=== PATIENT | female | born 1960 | race Caucasian/White ===

== ENCOUNTER → 2020-10-30 | Outpatient (CLI) | payer MEDICARE, OTHER ==
[~2020-10-30] MED LIST: ALBUTEROL 0.083%; AUGMENTIN 875-1 EACH PO; CRESTOR20 MG PO; DIFLUCAN150 MG PO; ECOTRIN81 MG PO; ENOXAPARIN40 MG/0.4 SC; ESTRADIOL 0.1 MG TOP; FARXIGA10 MG PO; FIORICET TAB1 EA PO; FLUNISOLIDE 0.025%; GLUCOPHAGE500 MG PO; HYDROCHLOROTHIA25 MG PO; HYDROCODON-ACE1 EAC4 PO; IPRAT-ALBUT 0.5-3 ML INH; LANTUS SOL100 UNIT/1 SQ; LANTUS SOLOSTAR; LASIX20 MG PO; MEDROL4 MG PO; NEURONTIN800 MG PO; NORCO 5-325 TA1 EACH PO; PENVEE K 500 M500 MG PO; PERCOCET 5/325 T1 EA PO; PHENERGAN 25 MG25 M1 PO; PROAIR HFA 90MCG; PROTONIX40 MG PO; PROZAC40 MG PO; REGLAN5 MG PO; SINGULAIR10 MG PO; SODIUM CHLORIDE1 G1 PO; STIOLTO RESPIMAT4 GM INH; SYMBICORT 80-10.2 GM INH; SYNTHROID50 MCG PO; TIZANIDINE HCL4 M1 PO; TORADOL 10 MG T10 MG PO; TRILIPIX45 MG PO; VENTOLIN HFA 66.7 GM INH; VIBRAMYCIN 100100 MG PO; VIBRAMYCIN100 MG PO; ZOCOR10 MG PO; ZOFRAN4 MG PO; [UNRECOGNIZED DRUG - CODE]; [UNRECOGNIZED DRUG - CODE] SQ; [UNRECOGNIZED DRUG - OTHER]
== END ==
LOC: KOH-I 09:00
DX: J32.3 Chronic sphenoidal sinusitis (principal); J34.2 Deviated nasal septum
CPT/HCPCS: 70486

== ENCOUNTER 2020-11-28 18:22 | Inpatient (IN) | payer MEDICARE, OTHER ==
[~2020-11-28] VITALS: Ht 157.5 cm; Wt 81.6 kg
[~2020-11-28 18:22] MED LIST changes: -CRESTOR20 MG PO; -ENOXAPARIN40 MG/0.4 SC; -FARXIGA10 MG PO; -HYDROCODON-ACE1 EAC4 PO; -IPRAT-ALBUT 0.5-3 ML INH; -LANTUS SOL100 UNIT/1 SQ; -SODIUM CHLORIDE1 G1 PO; -STIOLTO RESPIMAT4 GM INH; -[UNRECOGNIZED DRUG - CODE] SQ
[2020-11-28 19:46] LABS: HEMOGLOBIN 14.4 gm/dl (12.3-15.3); RED BLOOD COUNT 4.98 M/UL (4.00-5.10); WHITE BLOOD COUNT 17.5 K/UL (4.5-11.0)
[2020-11-28 20:01] LABS: BUN/CREATININE RATIO 13 (0-10)
[2020-11-28] MEDS ORDERED: FARXIGA10 MG PO (23:44)
[2020-11-28] MEDS ORDERED: LANTUS SOL100 UNIT/1 SQ (23:45)
[2020-11-28] MEDS ORDERED: [UNRECOGNIZED DRUG - CODE] SQ (23:47)
[2020-11-28] MEDS ORDERED: STIOLTO RESPIMAT4 GM INH (23:49)
[2020-11-28] MEDS ORDERED: IPRAT-ALBUT 0.5-3 ML INH (23:50)
[2020-11-28] MEDS ORDERED: CRESTOR20 MG PO (23:53)
[2020-11-29 10:13] LABS: HEMOGLOBIN 13.6 gm/dl (12.3-15.3); RED BLOOD COUNT 4.71 M/UL (4.00-5.10); WHITE BLOOD COUNT 15.7 K/UL (4.5-11.0)
[2020-11-29 10:28] LABS: BUN/CREATININE RATIO 16 (0-10)
[2020-11-30 02:50] LABS: HEMOGLOBIN 13.2 gm/dl (12.3-15.3); RED BLOOD COUNT 4.66 M/UL (4.00-5.10); WHITE BLOOD COUNT 13.8 K/UL (4.5-11.0)
[2020-11-30 03:09] LABS: BUN/CREATININE RATIO 21 (0-10)
[2020-12-01 03:15] LABS: RED BLOOD COUNT 4.23 M/UL (4.00-5.10); WHITE BLOOD COUNT 10.6 K/UL (4.5-11.0)
[2020-12-01 03:38] LABS: BUN/CREATININE RATIO 20 (0-10)
[2020-12-01 19:10] LABS: BUN/CREATININE RATIO 29 (0-10)
[2020-12-01 19:15] LABS: HEMOGLOBIN 11.6 gm/dl (12.3-15.3); RED BLOOD COUNT 4.07 M/UL (4.00-5.10); WHITE BLOOD COUNT 23.3 K/UL (4.5-11.0)
[2020-12-02 05:45] LABS: HEMOGLOBIN 8.7 gm/dl (12.3-15.3); RED BLOOD COUNT 3.07 M/UL (4.00-5.10); WHITE BLOOD COUNT 14.1 K/UL (4.5-11.0)
[2020-12-02 06:00] LABS: BUN/CREATININE RATIO 31 (0-10)
[2020-12-03 06:22] LABS: HEMOGLOBIN 7.9 gm/dl (12.3-15.3); RED BLOOD COUNT 2.78 M/UL (4.00-5.10); WHITE BLOOD COUNT 10.7 K/UL (4.5-11.0)
[2020-12-03 06:41] LABS: BUN/CREATININE RATIO 19 (0-10)
[2020-12-03] MEDS ORDERED: LASIX20 MG PO (09:30)
[2020-12-03] MEDS ORDERED: ENOXAPARIN40 MG/0.4 SC (09:30)
--- NOTE | 2020-12-03 10:28 | NUR ---
D/C'D HEMOVAC PER VERBAL ORDER FROM [facility]. SITE WNL NO COMPLICATIONS. WCTM
[2020-12-03] MEDS ORDERED: SODIUM CHLORIDE1 G1 PO (12:45)
[2020-12-03] MEDS ORDERED: PERCOCET 5/325 T1 EA PO (12:45)
--- NOTE | 2020-12-03 13:39 | NUR ---
CALLED OR. SPOKE WITH CAM JUAREZ. SHE VERIFIED WITH DR MEJIA THAT PT IS OK TO DC HOME.
== END 2020-12-03 13:50 | disposition home or self-care (01) | DRG 463 ==
LOC: ER1 18:22 → CDU 22:13 → M/S 22:13
PROVIDERS: Orthopaedic Surgery; Physician Assistant; ADMIT Internal Medicine
PROC: 0QSC06Z Reposition Left Lower Femur with Intramedullary Internal Fixation Device, Open Approach (ICD-10-PCS; principal; 2020-12-01 14:00)
PROC: 0SPD09Z Removal of Liner from Left Knee Joint, Open Approach (ICD-10-PCS; principal; 2020-12-01 14:00)
PROC: 0SUD09Z Supplement Left Knee Joint with Liner, Open Approach (ICD-10-PCS; principal; 2020-12-01 14:00)
DX: S72.402A Unspecified fracture of lower end of left femur, initial encounter for closed fracture (principal); I50.33 Acute on chronic diastolic (congestive) heart failure; M97.12XA Periprosthetic fracture around internal prosthetic left knee joint, initial encounter; E22.2 Syndrome of inappropriate secretion of antidiuretic hormone; I11.0 Hypertensive heart disease with heart failure; F41.9 Anxiety disorder, unspecified; W00.0XXA Fall on same level due to ice and snow, initial encounter; F17.210 Nicotine dependence, cigarettes, uncomplicated; D63.8 Anemia in other chronic diseases classified elsewhere; Z20.822 Contact with and (suspected) exposure to COVID-19; J44.9 Chronic obstructive pulmonary disease, unspecified; E11.9 Type 2 diabetes mellitus without complications; E03.9 Hypothyroidism, unspecified; Z96.653 Presence of artificial knee joint, bilateral; Z90.49 Acquired absence of other specified parts of digestive tract; Z90.710 Acquired absence of both cervix and uterus; Z88.5 Allergy status to narcotic agent; Z28.21 Immunization not carried out because of patient refusal
CPT/HCPCS: 36415; 71045; 72170; 72192; 73552; 73560; 73590; 73700; 76000; 80048; 80053; 82436; 82962; 84133; 84300; 85025; 93005; 94640; 94664; 94760; 96374; 96375; 96376; 97116-GP-CQ; 97162; 97166; 99285; C1713; C1776; J0690; J1100; J1170; J1644; J1650; J1885; J1940; J2001; J2250; J2270; J2405; J2550; J2704; J2710; J2795; J3010; J3370; J7030; J7050; J7120; U0002

== ENCOUNTER 2020-12-06 11:15 | Emergency (ER) | payer MEDICARE, OTHER ==
[~2020-12-06 11:15] MED LIST changes: +CRESTOR20 MG PO; +ENOXAPARIN40 MG/0.4 SC; +FARXIGA10 MG PO; +IPRAT-ALBUT 0.5-3 ML INH; +LANTUS SOL100 UNIT/1 SQ; +SODIUM CHLORIDE1 G1 PO; +STIOLTO RESPIMAT4 GM INH; +[UNRECOGNIZED DRUG - CODE] SQ
[2020-12-06] MEDS ORDERED: HYDROCODON-ACE1 EAC4 PO ×2 (12:45→13:39)
== END 2020-12-06 13:00 | disposition home or self-care (01) ==
LOC: ER1 11:15
DX: Z76.0 Encounter for issue of repeat prescription (principal); E11.9 Type 2 diabetes mellitus without complications; J44.9 Chronic obstructive pulmonary disease, unspecified; I10 Essential (primary) hypertension; Z88.5 Allergy status to narcotic agent; Z90.710 Acquired absence of both cervix and uterus; Z79.84 Long term (current) use of oral hypoglycemic drugs; Z90.49 Acquired absence of other specified parts of digestive tract; Z87.891 Personal history of nicotine dependence
CPT/HCPCS: 99281

== ENCOUNTER → 2021-05-19 | Outpatient (CLI) | payer MEDICARE ==
[~2021-05-19] MED LIST changes: +BREZTRI AEROS10.7 GM INH; +CALCIUM PO; +CENTRUM SILVER1 EAC4 PO; +FISH OIL 1,0001 EAC5 PO; +HYDROCODON-ACE1 EAC4 PO; +HYDROCODONE-AC1 EAC1 PO; +LEVOTHYROXINE75 MC1 PO; +LISINOPRIL10 MG PO; +PROVENTIL HFA6.7 GM INH; +TURMERIC PO; +VITAMIN D3125 MCG PO; +ZYRTEC10 MG PO
[2021-05-19 17:48] LABS: BUN/CREATININE RATIO 14 (0-10)
== END ==
LOC: LAB 16:26
PROVIDERS: Internal Medicine Nephrology
DX: N18.1 Chronic kidney disease, stage 1 (principal); E87.6 Hypokalemia; E55.9 Vitamin D deficiency, unspecified
CPT/HCPCS: 80053; 82570; 83735; 84156

== ENCOUNTER → 2021-06-08 | Outpatient (CLI) | payer MEDICARE ==
[~2021-06-08] MED LIST changes: -BREZTRI AEROS10.7 GM INH; -CALCIUM PO; -CENTRUM SILVER1 EAC4 PO; -FISH OIL 1,0001 EAC5 PO; -HYDROCODONE-AC1 EAC1 PO; -LEVOTHYROXINE75 MC1 PO; -LISINOPRIL10 MG PO; -PROVENTIL HFA6.7 GM INH; -TURMERIC PO; -VITAMIN D3125 MCG PO; -ZYRTEC10 MG PO
== END ==
LOC: KOH-I 09:24
DX: S72.402A Unspecified fracture of lower end of left femur, initial encounter for closed fracture (principal); M25.462 Effusion, left knee; W19.XXXA Unspecified fall, initial encounter
CPT/HCPCS: 73700

== ENCOUNTER → 2021-07-16 | Outpatient (CLI) | payer MEDICARE ==
[~2021-07-16] MED LIST changes: +BREZTRI AEROS10.7 GM INH; +CALCIUM PO; +CENTRUM SILVER1 EAC4 PO; +FISH OIL 1,0001 EAC5 PO; +HYDROCODONE-AC1 EAC1 PO; +LASIX 40 MG TAB40 MG PO; +LEVOTHYROXINE75 MC1 PO; +LISINOPRIL10 MG PO; +PROVENTIL HFA6.7 GM INH; +TURMERIC PO; +VITAMIN D3125 MCG PO; +ZYRTEC10 MG PO
[2021-07-16 14:23] LABS: BUN/CREATININE RATIO 14 (0-10)
== END ==
LOC: OPSV2 13:00
PROVIDERS: Orthopaedic Surgery
DX: Z01.818 Encounter for other preprocedural examination (principal)
CPT/HCPCS: 36415; 80048; 93005

== ENCOUNTER 2021-07-19 01:08 | Emergency (ER) | payer MEDICARE ==
[~2021-07-19 01:08] MED LIST changes: -LASIX 40 MG TAB40 MG PO
[2021-07-19 02:51] LABS: RED BLOOD COUNT 4.24 M/UL (4.00-5.10); WHITE BLOOD COUNT 10.7 K/UL (4.5-11.0)
[2021-07-19 03:14] LABS: BUN/CREATININE RATIO 13 (0-10)
[2021-07-19] MEDS ORDERED: LASIX 40 MG TAB40 MG PO (04:23)
== END 2021-07-19 04:45 | disposition home or self-care (01) ==
LOC: ER1 01:08
PROVIDERS: Family Medicine
DX: R60.0 Localized edema (principal); R60.9 Edema, unspecified; R74.8 Abnormal levels of other serum enzymes
CPT/HCPCS: 71046; 80053; 82550; 82553; 83874; 83880; 84484; 85025; 93005; 96374; 99284; J1940

== ENCOUNTER → 2021-07-20 | Day surgery (SDC) | payer MEDICARE ==
[~2021-07-20] VITALS: Ht 157.5 cm; Wt 88.5 kg
[~2021-07-20] MED LIST changes: +LASIX 40 MG TAB40 MG PO
== END | disposition home or self-care (01) ==
LOC: OR 06:20
DX: S72.402G Unspecified fracture of lower end of left femur, subsequent encounter for closed fracture with delayed healing (principal); M97.12XA Periprosthetic fracture around internal prosthetic left knee joint, initial encounter; I13.0 Hypertensive heart and chronic kidney disease with heart failure and stage 1 through stage 4 chronic kidney disease, or unspecified chronic kidney disease; E11.22 Type 2 diabetes mellitus with diabetic chronic kidney disease; N18.9 Chronic kidney disease, unspecified; I50.9 Heart failure, unspecified; E78.5 Hyperlipidemia, unspecified; J44.9 Chronic obstructive pulmonary disease, unspecified; K21.9 Gastro-esophageal reflux disease without esophagitis; F41.9 Anxiety disorder, unspecified; E03.9 Hypothyroidism, unspecified; F17.200 Nicotine dependence, unspecified, uncomplicated; X58.XXXD Exposure to other specified factors, subsequent encounter; Z90.49 Acquired absence of other specified parts of digestive tract; Z90.710 Acquired absence of both cervix and uterus; Z96.653 Presence of artificial knee joint, bilateral; Z99.81 Dependence on supplemental oxygen; Z88.6 Allergy status to analgesic agent; Z88.8 Allergy status to other drugs, medicaments and biological substances; Z79.4 Long term (current) use of insulin; Z79.899 Other long term (current) drug therapy
CPT/HCPCS: 73552; 76000; 82962; J0690; J2001; J2250; J2405; J2550; J2704; J2710; J2795; J3010; J7030; J7120

== ENCOUNTER → 2021-12-09 | Outpatient (CLI) | payer MEDICARE | LOC: KOH-I 09:00 | DX: S72.402K Unspecified fracture of lower end of left femur, subsequent encounter for closed fracture with nonunion (principal) | CPT/HCPCS: 73700 ==

== ENCOUNTER 2022-01-19 13:50 | Inpatient (IN) | payer MEDICARE ==
[~2022-01-19] VITALS: Ht 157.5 cm; Wt 94.0 kg
[~2022-01-19 13:50] MED LIST changes: +AMOX TR-K CLV1 EAC4 PO
[2022-01-19 15:22] LABS: HEMOGLOBIN 12.7 gm/dl (12.3-15.3); RED BLOOD COUNT 4.54 M/UL (4.00-5.10); WHITE BLOOD COUNT 12.6 K/UL (4.5-11.0)
[2022-01-19 16:27] LABS: BUN/CREATININE RATIO 7 (0-10)
[2022-01-20] MEDS ORDERED: [UNRECOGNIZED DRUG - CODE] SC (01:34)
[2022-01-20] MEDS ORDERED: PROTONIX 40 MG40 M1 PO (01:40)
[2022-01-20] MEDS ORDERED: SINGULAIR10 MG PO (01:40)
[2022-01-20] MEDS ORDERED: LANTUS SOL100 UNIT/1 SQ (01:40)
[2022-01-20] MEDS ORDERED: FARXIGA10 MG PO (01:41)
[2022-01-20] MEDS ORDERED: LEVOTHYROXINE75 MC1 PO (01:41)
[2022-01-20] MEDS ORDERED: ZYRTEC10 MG PO (01:42)
[2022-01-20] MEDS ORDERED: NORVASC5 MG PO (01:42)
[2022-01-20] MEDS ORDERED: ZANAFLEX4 MG PO (01:43)
[2022-01-20] MEDS ORDERED: LISINOPRIL10 MG PO (01:43)
[2022-01-20] MEDS ORDERED: ZOCOR40 MG PO (01:44)
[2022-01-20] MEDS ORDERED: PROZAC40 MG PO (01:44)
[2022-01-20] MEDS ORDERED: GABAPENTIN800 MG PO (01:45)
[2022-01-20 02:29] LABS: HEMOGLOBIN 12.3 gm/dl (12.3-15.3); RED BLOOD COUNT 4.39 M/UL (4.00-5.10); WHITE BLOOD COUNT 15.7 K/UL (4.5-11.0)
[2022-01-20] MEDS ORDERED: PROMETHAZINE HC25 M1 PO (11:37)
[2022-01-20] MEDS ORDERED: JANUVIA100 MG PO (11:49)
[2022-01-20] MEDS ORDERED: TORADOL 10 MG T10 MG PO (14:18)
[2022-01-22 08:56] LABS: RED BLOOD COUNT 4.28 M/UL (4.00-5.10)
[2022-01-22 09:23] LABS: BUN/CREATININE RATIO 6 (0-10)
[2022-01-22] MEDS ORDERED: LEVOFLOXACIN750 MG PO (09:43)
== END 2022-01-22 10:17 | disposition home or self-care (01) | DRG 871 ==
LOC: ER1 13:50 → CDU 19:13 → PROG CARE 19:13
PROVIDERS: Physician Assistant; ADMIT Internal Medicine
DX: A41.9 Sepsis, unspecified organism (principal); J18.9 Pneumonia, unspecified organism; J96.01 Acute respiratory failure with hypoxia; J44.0 Chronic obstructive pulmonary disease with (acute) lower respiratory infection; E03.9 Hypothyroidism, unspecified; Z20.822 Contact with and (suspected) exposure to COVID-19; G89.29 Other chronic pain; M54.9 Dorsalgia, unspecified; F17.290 Nicotine dependence, other tobacco product, uncomplicated; K21.9 Gastro-esophageal reflux disease without esophagitis; E11.9 Type 2 diabetes mellitus without complications; F41.9 Anxiety disorder, unspecified; E11.43 Type 2 diabetes mellitus with diabetic autonomic (poly)neuropathy; K31.84 Gastroparesis; M25.562 Pain in left knee; I50.9 Heart failure, unspecified; I11.0 Hypertensive heart disease with heart failure; M25.552 Pain in left hip; Z96.653 Presence of artificial knee joint, bilateral; R59.1 Generalized enlarged lymph nodes; D64.9 Anemia, unspecified; Z90.710 Acquired absence of both cervix and uterus; Z90.49 Acquired absence of other specified parts of digestive tract; Z98.890 Other specified postprocedural states
CPT/HCPCS: 0240U; 36415; 36600; 71045; 80053; 80307; 81001; 82803; 82962; 83605; 83615; 83690; 83735; 84100; 84439; 84443; 85025; 85652; 86140; 87040; 87070; 87081; 87205; 93005; 96365; 96372; 96375; 96376; 99285; J1650; J2185; J2405; J2760; J2765; J7030; Q9967

== ENCOUNTER 2022-02-04 17:37 | Emergency (ER) | payer MEDICARE ==
[~2022-02-04 17:37] MED LIST changes: +GABAPENTIN800 MG PO; +JANUVIA100 MG PO; +LEVOFLOXACIN750 MG PO; +NORVASC5 MG PO; +PROMETHAZINE HC25 M1 PO; +PROTONIX 40 MG40 M1 PO; +ZANAFLEX4 MG PO; +ZOCOR40 MG PO; +[UNRECOGNIZED DRUG - CODE] SC
[2022-02-04 18:07] LABS: HEMOGLOBIN 12.8 gm/dl (12.3-15.3); RED BLOOD COUNT 4.54 M/UL (4.00-5.10); WHITE BLOOD COUNT 12.5 K/UL (4.5-11.0)
[2022-02-04 18:42] LABS: BUN/CREATININE RATIO 16 (0-10)
[2022-02-04] MEDS ORDERED: GUAIFENESIN400 MG PO (22:46)
[2022-02-07] MEDS ORDERED: IPRAT-ALBUT 0.5-3 ML INH (11:31)
[2022-02-07] MEDS ORDERED: ONDANSETRON ODT4 MG PO (11:32)
[2022-02-07] MEDS ORDERED: BREZTRI AEROS10.7 GM PO (11:33)
[2022-02-07] MEDS ORDERED: TIZANIDINE HCL4 MG PO (11:36)
[2022-02-08] MEDS ORDERED: PROTONIX40 MG PO (11:09)
[2022-02-08] MEDS ORDERED: LEVOFLOXACIN750 MG PO (11:09)
== END 2022-02-04 22:54 | disposition home or self-care (01) ==
LOC: ER1 17:37
DX: R07.89 Other chest pain (principal); R10.13 Epigastric pain; E11.9 Type 2 diabetes mellitus without complications; J44.9 Chronic obstructive pulmonary disease, unspecified; I10 Essential (primary) hypertension; F17.290 Nicotine dependence, other tobacco product, uncomplicated
CPT/HCPCS: 36600; 71045; 80053; 82550; 82553; 82803; 84484; 85025; 94664; 96374; 96375; 96376; 99285; C9113; J2270; J2405; Q9967

== ENCOUNTER → 2022-02-12 | Outpatient (CLI) | payer MEDICARE ==
[~2022-02-12] MED LIST changes: +BREZTRI AEROS10.7 GM PO; +GUAIFENESIN400 MG PO; +ONDANSETRON ODT4 MG PO; +TIZANIDINE HCL4 MG PO
== END ==
LOC: HEART 5 11:45
DX: R06.02 Shortness of breath (principal)
CPT/HCPCS: 94060; 94729

== ENCOUNTER → 2022-02-15 | Outpatient (CLI) | payer MEDICARE | LOC: RT 11:55 | DX: J30.9 Allergic rhinitis, unspecified (principal); R90.89 Other abnormal findings on diagnostic imaging of central nervous system; F41.9 Anxiety disorder, unspecified; M19.90 Unspecified osteoarthritis, unspecified site; G56.03 Carpal tunnel syndrome, bilateral upper limbs; G47.34 Idiopathic sleep related nonobstructive alveolar hypoventilation; R93.89 Abnormal findings on diagnostic imaging of other specified body structures | CPT/HCPCS: 36600; 82803 ==

== ENCOUNTER → 2022-03-01 | Outpatient (CLI) | payer MEDICARE | LOC: HEART 5 02-23 08:45 | DX: R07.9 Chest pain, unspecified (principal) | CPT/HCPCS: 78452; A9502; J2785 ==

== ENCOUNTER → 2022-03-13 | Outpatient (CLI) | payer MEDICARE ==
[2022-03-16 12:10] LABS: ANGIOTENSIN-CONVERTING ENZYME <15 U/L (14-82)
[2022-03-16 13:10] LABS: A/G RATIO 1.3 (0.7-1.7); ALBUMIN 3.8 g/dL (2.9-4.4); ALPHA-1-GLOBULIN 0.2 g/dL (0.0-0.4); ALPHA-2-GLOBULIN 1.2 g/dL (0.4-1.0); BETA GLOBULIN 0.8 g/dL (0.7-1.3); GAMMA GLOBULIN 0.8 g/dL (0.4-1.8); M-SPIKE Not Observed g/dL (Not Observed); PROTEIN, TOTAL, SERUM 6.8 g/dL (6.0-8.5)
[2022-03-17 05:10] LABS: VITAMIN D, 25-HYDROXY 50.8 ng/mL (30.0-100.0)
[2022-03-18 15:13] LABS: IMMUNOGLOBULIN A, QN, SERUM 105 mg/dL (87-352); IMMUNOGLOBULIN G, QN, SERUM 763 mg/dL (586-1602); IMMUNOGLOBULIN M, QN, SERUM 102 mg/dL (26-217)
== END ==
LOC: LAB 15:37
PROVIDERS: Internal Medicine Nephrology
DX: E83.52 Hypercalcemia (principal); R31.9 Hematuria, unspecified; N18.1 Chronic kidney disease, stage 1; E87.6 Hypokalemia
CPT/HCPCS: 80053; 81001; 82164; 82330; 82397; 82570; 82784; 83735; 83970; 84100; 84155; 84156; 84165; 86334; 86335

== ENCOUNTER → 2022-03-24 | Outpatient (CLI) | payer MEDICARE ==
[2022-03-24 14:31] LABS: HEMOGLOBIN 12.1 gm/dl (12.3-15.3); RED BLOOD COUNT 4.39 M/UL (4.00-5.10); WHITE BLOOD COUNT 6.5 K/UL (4.5-11.0)
== END ==
LOC: OPSV2 12:30 → EDSTATUS 12:30 → OPSV2 12:43
PROVIDERS: Orthopaedic Surgery
DX: Z01.812 Encounter for preprocedural laboratory examination (principal); S82.002K Unspecified fracture of left patella, subsequent encounter for closed fracture with nonunion
CPT/HCPCS: 80048; 81001; 83036; 85025; 85652; 86140

== ENCOUNTER 2022-04-03 11:34 | Emergency (ER) | payer MEDICARE ==
[~2022-04-03 11:34] MED LIST changes: +LEVOTHYROXINE75 MCG PO
[2022-04-03 13:05] LABS: HEMOGLOBIN 13.1 gm/dl (12.3-15.3); RED BLOOD COUNT 4.7 M/UL (4.00-5.10); WHITE BLOOD COUNT 8.5 K/UL (4.5-11.0)
== END 2022-04-03 14:54 | disposition home or self-care (01) ==
LOC: ER1 11:34
PROVIDERS: Physician Assistant
DX: R06.02 Shortness of breath (principal); E87.1 Hypo-osmolality and hyponatremia; E11.9 Type 2 diabetes mellitus without complications; E78.5 Hyperlipidemia, unspecified; I11.0 Hypertensive heart disease with heart failure; I50.9 Heart failure, unspecified; J44.9 Chronic obstructive pulmonary disease, unspecified; F17.290 Nicotine dependence, other tobacco product, uncomplicated; Z20.822 Contact with and (suspected) exposure to COVID-19
CPT/HCPCS: 0240U; 71045; 80053; 81001; 82550; 82553; 83880; 84484; 85025; 93005; 99285

== ENCOUNTER 2022-04-04 23:29 | Observation (INO) | payer MEDICARE ==
[~2022-04-04] VITALS: Ht 157.5 cm; Wt 90.7 kg
[2022-04-05 00:04] LABS: HEMOGLOBIN 10.7 gm/dl (12.3-15.3); RED BLOOD COUNT 3.84 M/UL (4.00-5.10)
[2022-04-05 05:58] LABS: HEMOGLOBIN 10.5 gm/dl (12.3-15.3); RED BLOOD COUNT 3.77 M/UL (4.00-5.10); WHITE BLOOD COUNT 10.7 K/UL (4.5-11.0)
--- NOTE | 2022-04-05 11:08 | NUR ---
notified dr. 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
--- NOTE | 2022-04-05 17:55 | NUR ---
reported to dr. ludwig patient b/p and received order
[2022-04-06 02:41] LABS: HEMOGLOBIN 9.7 gm/dl (12.3-15.3); RED BLOOD COUNT 3.43 M/UL (4.00-5.10); WHITE BLOOD COUNT 8.6 K/UL (4.5-11.0)
[2022-04-06 03:31] LABS: BUN/CREATININE RATIO 13 (0-10)
[2022-04-06] MEDS ORDERED: DIFLUCAN100 MG PO (09:47)
[2022-04-06] MEDS ORDERED: ZOFRAN ODT 4 MG4 MG PO (09:47)
[2022-04-06] MEDS ORDERED: LEVOFLOXACIN500 MG PO (09:47)
== END 2022-04-06 13:08 | disposition home or self-care (01) ==
LOC: ER1 23:29 → M/S 04-05 03:44 → CDU 04-05 03:44 → M/S 04-05 06:33
PROVIDERS: Internal Medicine; Student in an Organized Health Care Education/Training Program; ADMIT Internal Medicine
DX: A41.9 Sepsis, unspecified organism (principal); N39.0 Urinary tract infection, site not specified; N17.9 Acute kidney failure, unspecified; E86.0 Dehydration; J44.9 Chronic obstructive pulmonary disease, unspecified; E11.40 Type 2 diabetes mellitus with diabetic neuropathy, unspecified; I11.9 Hypertensive heart disease without heart failure; E03.9 Hypothyroidism, unspecified; G89.29 Other chronic pain; E78.5 Hyperlipidemia, unspecified; F17.290 Nicotine dependence, other tobacco product, uncomplicated; E66.9 Obesity, unspecified; Z68.36 Body mass index [BMI] 36.0-36.9, adult; Z79.4 Long term (current) use of insulin; Z79.890 Hormone replacement therapy; Z79.899 Other long term (current) drug therapy; Z88.5 Allergy status to narcotic agent
CPT/HCPCS: 71045; 80053; 81001; 82140; 82550; 82553; 82962; 83605; 83735; 84100; 84484; 85025; 85379; 87040; 87086; 93005; 96361; 96372; 96374; 96376; 99285; G0378; J0696; J1650; J2405; Q9967

== ENCOUNTER → 2022-04-20 | Outpatient (CLI) | payer MEDICARE ==
[~2022-04-20] MED LIST changes: +DIFLUCAN100 MG PO; +LEVOFLOXACIN500 MG PO; +ZOFRAN ODT 4 MG4 MG PO
[2022-04-20 18:00] LABS: BUN/CREATININE RATIO 5 (0-10)
== END ==
LOC: LAB 16:27
PROVIDERS: Internal Medicine Nephrology
DX: E87.1 Hypo-osmolality and hyponatremia (principal)
CPT/HCPCS: 36415; 80048

== ENCOUNTER → 2022-06-16 | Outpatient (CLI) | payer MEDICARE ==
[~2022-06-16] MED LIST changes: +AMOXICILLIN500 MG PO; +AZO STANDARD95 MG PO; +CATAPRES 0.1MG0.1 MG PO; +LISINOPRIL40 MG PO
[2022-06-16 14:20] LABS: HEMOGLOBIN 13.3 gm/dl (12.3-15.3); RED BLOOD COUNT 4.72 M/UL (4.00-5.10); WHITE BLOOD COUNT 6.6 K/UL (4.5-11.0)
[2022-06-16 14:35] LABS: BUN/CREATININE RATIO 11 (0-10)
== END ==
LOC: EDSTATUS 12:30 → OPSV2 12:30
PROVIDERS: Orthopaedic Surgery
DX: Z01.818 Encounter for other preprocedural examination (principal); A41.9 Sepsis, unspecified organism; I10 Essential (primary) hypertension; E11.9 Type 2 diabetes mellitus without complications; T84.84XA Pain due to internal orthopedic prosthetic devices, implants and grafts, initial encounter
CPT/HCPCS: 36415; 71046; 80048; 81001; 83036; 85027; 85610; 85652; 85730; 86140; 87086

== ENCOUNTER → 2022-06-28 | Outpatient (CLI) | payer MEDICARE | LOC: KOH-I 06-24 16:00 | DX: T84.093D Other mechanical complication of internal left knee prosthesis, subsequent encounter (principal); Z96.652 Presence of left artificial knee joint | CPT/HCPCS: 73700 ==

== ENCOUNTER → 2022-07-05 | Outpatient (CLI) | payer MEDICARE ==
[~2022-07-05] MED LIST changes: +HUMALOG100 UNIT/3 SC; +TRESIBA FL100 UNIT/1 SQ
[2022-07-05 15:29] LABS: BUN/CREATININE RATIO 14 (0-10)
== END ==
LOC: LAB 14:09
PROVIDERS: Orthopaedic Surgery
DX: Z01.812 Encounter for preprocedural laboratory examination (principal); T84.84XA Pain due to internal orthopedic prosthetic devices, implants and grafts, initial encounter; I10 Essential (primary) hypertension; E11.9 Type 2 diabetes mellitus without complications
CPT/HCPCS: 36415; 80048; 86850; 86900; 86901

== ENCOUNTER 2022-07-06 06:29 | Inpatient (IN) | payer MEDICARE ==
[~2022-07-06] VITALS: Ht 157.5 cm; Wt 90.3 kg
[2022-07-06] MEDS ORDERED: AMOXICILLIN500 MG PO (07:05)
[2022-07-06 16:09] LABS: HEMOGLOBIN 12.4 gm/dl (12.3-15.3); RED BLOOD COUNT 4.51 M/UL (4.00-5.10); WHITE BLOOD COUNT 14.5 K/UL (4.5-11.0)
[2022-07-06 18:07] LABS: HEMOGLOBIN 11.9 gm/dl (12.3-15.3); RED BLOOD COUNT 4.39 M/UL (4.00-5.10); WHITE BLOOD COUNT 12.5 K/UL (4.5-11.0)
[2022-07-07 16:15] LABS: HEMOGLOBIN 9.5 gm/dl (12.3-15.3); RED BLOOD COUNT 3.41 M/UL (4.00-5.10)
[2022-07-08 16:33] LABS: HEMOGLOBIN 10.4 gm/dl (12.3-15.3); WHITE BLOOD COUNT 10.7 K/UL (4.5-11.0)
[2022-07-08 16:35] LABS: RED BLOOD COUNT 3.81 M/UL (4.00-5.10)
[2022-07-09 03:28] LABS: HEMOGLOBIN 10.6 gm/dl (12.3-15.3); RED BLOOD COUNT 3.9 M/UL (4.00-5.10); WHITE BLOOD COUNT 10.1 K/UL (4.5-11.0)
--- NOTE | 2022-07-09 15:10 | NUR ---
VERIFIED WITH [facility], [phone] THAT PATIENT HAS A PRESCRIPTION CALLED IN FOR OXYCODONE 5MG EVERY 8 HOURS NEEDED FOR PAIN.
== END 2022-07-09 15:23 | disposition home or self-care (01) | DRG 467 ==
LOC: OR 06:29 → M/S 06:30 → OR 07:30 → M/S 16:28 → OR 16:28 → PROG CARE 07-07 14:38
PROVIDERS: Internal Medicine; ADMIT Orthopaedic Surgery
PROC: 0QP704Z Removal of Internal Fixation Device from Left Upper Femur, Open Approach (ICD-10-PCS; 2022-07-06)
PROC: 0SPW0JZ Removal of Synthetic Substitute from Left Knee Joint, Tibial Surface, Open Approach (ICD-10-PCS; principal; 2022-07-06 10:45)
PROC: 0SRW0J9 Replacement of Left Knee Joint, Tibial Surface with Synthetic Substitute, Cemented, Open Approach (ICD-10-PCS; 2022-07-06 10:45)
DX: T84.038A Mechanical loosening of other internal prosthetic joint, initial encounter (principal); N17.9 Acute kidney failure, unspecified; S72.402A Unspecified fracture of lower end of left femur, initial encounter for closed fracture; M97.02XA Periprosthetic fracture around internal prosthetic left hip joint, initial encounter; E11.9 Type 2 diabetes mellitus without complications; Y83.8 Other surgical procedures as the cause of abnormal reaction of the patient, or of later complication, without mention of misadventure at the time of the procedure; J44.9 Chronic obstructive pulmonary disease, unspecified; E03.9 Hypothyroidism, unspecified; G89.29 Other chronic pain; F17.290 Nicotine dependence, other tobacco product, uncomplicated; Z96.653 Presence of artificial knee joint, bilateral; F41.9 Anxiety disorder, unspecified; I95.2 Hypotension due to drugs; T40.605A Adverse effect of unspecified narcotics, initial encounter; F32.A Depression, unspecified; I11.0 Hypertensive heart disease with heart failure; E78.5 Hyperlipidemia, unspecified; K21.9 Gastro-esophageal reflux disease without esophagitis; E66.9 Obesity, unspecified; Z90.49 Acquired absence of other specified parts of digestive tract; Z90.710 Acquired absence of both cervix and uterus; Z98.891 History of uterine scar from previous surgery; Z88.1 Allergy status to other antibiotic agents; Z82.49 Family history of ischemic heart disease and other diseases of the circulatory system; Z68.36 Body mass index [BMI] 36.0-36.9, adult
CPT/HCPCS: 36415; 73560; 80048; 81001; 82962; 85025; 87070; 87086; 87205; 94640; 94664; 94760; 97110; 97116; 97116-GP-CQ; 97161; 97164; 97166; 97168; 97530; C1713; C1776; J0690; J1170; J1200; J1644; J1885; J2001; J2250; J2270; J2274; J2405; J2704; J2710; J2795; J3010; J3260; J3370; J3475; J7040; J7050